=== PATIENT | male | born 1995 | race Caucasian/White ===

== ENCOUNTER 2017-07-28 08:54 | Emergency (ER) | payer OTHER ==
[2017-07-28 09:41] VITALS: BP 125/72
--- NOTE | 2017-07-28 10:13 | ED ---
Throat Pain/Nasal Congestion - HPI Summary HPI Summary: 21 yr old with recent strep pharyngitis, presents here with sore throat for a couple days, and fever last night. He finished his Pen VK 10 days ago. Denies drooling. Denies change in voice. he has no other complaints. - History of Current Complaint Chief Complaint: UCGeneralIllness Time Seen by Provider: 07/28/17 09:46 - Allergies/Home Medications Allergies/Adverse Reactions: Allergies Allergy/AdvReac Type Severity Reaction Status Date / Time No Known Allergies Allergy Verified 07/28/17 09:33 PMH/Surg Hx/FS Hx/Imm Hx - Surgical History Surgery Procedure, Year, and Place: RIGHT MENISCUS REPAIR Infectious Disease History: No Infectious Disease History: Denies: Traveled Outside the [place] in Last 30 Days - Family History Known Family History: Positive: None - Social History Occupation: Student Lives: Dormitory/Roommates Alcohol Use: Weekly Substance Use Type: Reports: None Smoking Status (MU): Former Smoker Review of Systems Positive: Fever, Chills Positive: Sore Throat All Other Systems Reviewed And Are Negative: Yes Physical Exam Triage Information Reviewed: Yes Vital Signs On Initial Exam: Initial Vitals Temp Pulse Resp BP Pulse Ox 98.5 F 75 18 125/72 100 07/28/17 09:38 07/28/17 09:38 07/28/17 09:38 07/28/17 09:38 07/28/17 09:38 Vital Signs Reviewed: Yes Appearance: Positive: Well-Appearing, No Pain Distress Skin: Positive: Warm, Skin Color Reflects Adequate Perfusion Eyes: Positive: EOMI ENT: Positive: Pharyngeal erythema, Tonsillar swelling Neck: Positive: Supple, Nontender Respiratory/Lung Sounds: Positive: Clear to Auscultation, Breath Sounds Present Cardiovascular: Positive: RRR. Negative: Murmur Abdomen Description: Positive: Nontender Musculoskeletal: Positive: Strength/ROM Intact Neurological: Positive: Sensory/Motor Intact, Alert, Oriented to Person Place, Time, CN Intact II-III Psychiatric: Positive: Normal - Barton Coma Scale Best Eye Response: 4 - Spontaneous Best Motor Response: 6 - Obeys Commands Best Verbal Response: 5 - Oriented Coma Scale Total: 15 Diagnostics - Vital Signs Vital Signs Temp Pulse Resp BP Pulse Ox 07/28/17 09:38 98.5 F 75 18 125/72 100 - Laboratory Lab Results: Lab Results 07/28/17 Range/Units 10:00 Group A Strep Rapid Positive H (Negative) Lab Statement: Any lab studies that have been ordered have been reviewed, and results considered in the medical decision making process. EENT Course/Dx - Course Course Of Treatment: 21 yr old with strep pharyngitis that returned. Will Rx with Augmentin this time. - Diagnoses Provider Diagnoses: Strep pharyngitis Discharge - Discharge Plan Condition: Good Disposition: HOME Prescriptions: Amoxicillin/Clavulanate TAB* [Augmentin TAB 875*] 875 mg PO BID #20 tab Patient Education Materials: Strep Throat (DC) Referrals: No Primary Care Phys,NOPCP [Primary Care Provider] - [facility] [Outside]
== END 2017-07-28 10:25 | disposition home or self-care (01) ==
LOC: UCCORT 08:54
DX: J02.0 Streptococcal pharyngitis (principal); Z87.891 Personal history of nicotine dependence
CPT/HCPCS: 87651; 99202; G0463

== ENCOUNTER 2018-08-19 11:40 | Emergency (ER) | payer OTHER | END 2018-08-19 12:45 | disposition left against medical advice (07) | LOC: UCCORT 11:40 | DX: Z53.21 Procedure and treatment not carried out due to patient leaving prior to being seen by health care provider (principal) ==